=== PATIENT | female | born 1960 | race African-American/Black ===

== ENCOUNTER 2024-03-29 06:35 | Inpatient (IN) | payer MEDICARE, MEDICAID ==
[~2024-03-29] VITALS: Ht 160 cm; Wt 106.7 kg
[2024-03-29] MEDS: PREDNISONE 20MG TABLET PO STA (07:05)
[2024-03-29 07:43] LABS: BASOPHILS % 0.5 % (0.0-2.0); HEMATOCRIT. 47.7 % (36.0-48.0); HEMOGLOBIN. 15.5 g/dL (12.0-16.0); LYMPHOCYTES % 12.3 % (20.0-50.0); MEAN CORPUSCULAR HEMOGLOBIN 31.1 pg (28.0-32.0); MEAN CORPUSCULAR HGB CONC 32.5 g/dL (31.0-37.0); MEAN CORPUSCULAR VOLUME 95.7 fL (81.0-99.0); MONOCYTES % 8.6 % (2.0-8.0); NEUTROPHILS % 77.6 % (40.0-76.0); PLATELET 202 x1000/uL (130-400); RED BLOOD CELL COUNT 4.98 mill/uL (4.2-5.4); RED CELL DISTRIBUTION WIDTH 15.4 % (11.6-14.6); WHITE BLOOD COUNT 7.6 x1000/uL (4.5-11.0)
[2024-03-29] MEDS: ALBUTEROL (0.083%) 2.5MG/3ML NEB HHN STA (07:50)
[2024-03-29] MEDS: IPRATROPIUM BROMIDE (0.02%) 0.5MG/2.5ML NEB HHN STA (07:50)
[2024-03-29 08:00] VITALS: PULSE 78; RESP 20; O2SAT 99
[2024-03-29 08:02] LABS: CHLORIDE 109 mEq/L (98-107); POTASSIUM 4.5 mEq/L (3.5-5.1); SODIUM 142 mEq/L (136-145)
[2024-03-29 08:03] LABS: CALCIUM 9.9 mg/dL (8.7-10.4); CARBON DIOXIDE 24 mEq/L (21-32)
[2024-03-29 08:08] LABS: CREATININE 0.9 mg/dL (0.6-1.0); GLUCOSE 222 mg/dL (70-105); TROPONIN I HIGH SENSITIVITY 16 ng/L (3.0-34); UREA NITROGEN BLOOD 14 mg/dL (9-23)
[2024-03-29 10:28] LABS: TROPONIN I HIGH SENSITIVITY 16 ng/L (3.0-34)
[2024-03-29] MEDS ORDERED: MAGNESIUM/ALUMINUM HYDROXIDE/SIMETHICONE 30ML UDC PO PRN (11:30)
[2024-03-29] MEDS ORDERED: DOCUSATE SODIUM 100MG CAPSULE PO PRN (11:30)
[2024-03-29] MEDS ORDERED: DEXTROSE 50% WATER 50ML SYRINGE IV PRN (11:30)
[2024-03-29] MEDS ORDERED: ONDANSETRON HCL 4MG/2ML INJ IV PRN (11:30)
[2024-03-29] MEDS ORDERED: CLONIDINE 0.1MG TABLET PO PRN (11:30)
[2024-03-29] MEDS ORDERED: ACETAMINOPHEN 325MG TABLET PO PRN (11:30)
[2024-03-29] MEDS ORDERED: IPRATROPIUM/ALBUTEROL 0.5-3(2.5)MG/3ML NEB HHN PRN (11:40)
[2024-03-29 12:00] VITALS: BP_SYST 147; BP_SYST 148; BP_DIAS 85; BP_DIAS 95; PULSE 93; RESP 18; RESP 19; TEMP 36.28068; TEMP 36.78072; O2SAT 96
[2024-03-29] MEDS: PANTOPRAZOLE 40MG DR TABLET PO SCH (13:01)
[2024-03-29] MEDS: ENOXAPARIN 40MG/0.4ML SYR SUBCUT SCH (13:02)
[2024-03-29] MEDS: BLOOD SUGAR DIAGNOSTIC STRIP TEST SCH (13:02)
[2024-03-29] MEDS: INSULIN LISPRO 100 UNITS/ML SUBCUT SCH (13:03)
[2024-03-29 14:13] VITALS: BP 148/94; PULSE 80; RESP 18; TEMP 35.9732
[2024-03-29 15:34] VITALS: BP 125/80; PULSE 86; RESP 19; TEMP 36.61404; O2SAT 95
[2024-03-29] MEDS: SPIRONOLACTONE 25MG TABLET PO SCH (16:36)
[2024-03-29] MEDS: METHYLPREDNISOLONE SOD SUCC 40MG/ML (ACT-O-VIAL) IV SCH (16:36)
[2024-03-29] MEDS: ASPIRIN 81MG EC TABLET PO SCH (16:36)
[2024-03-29] MEDS ORDERED: NON FORMULARY MED PO SCH (17:00)
[2024-03-29 18:12] VITALS: PULSE 86; RESP 20; O2SAT 96
[2024-03-29] MEDS: IPRATROPIUM/ALBUTEROL 0.5-3(2.5)MG/3ML NEB HHN PRN (18:12)
[2024-03-29] MEDS ORDERED: AMIO100T4 MT (18:27)
[2024-03-29] MEDS ORDERED: HYDR50SO PO (18:27)
[2024-03-29] MEDS ORDERED: TIOT18CA3 INH (18:27)
[2024-03-29] MEDS ORDERED: FURO40TA5 MT (18:27)
[2024-03-29] MEDS ORDERED: INSU100I24 SQ (18:27)
[2024-03-29] MEDS ORDERED: CLAR10 PO (18:27)
[2024-03-29] MEDS ORDERED: MONT-46 MT (18:27)
[2024-03-29] MEDS ORDERED: BO1 TP (18:27)
[2024-03-29] MEDS ORDERED: TC1U15 TP (18:27)
[2024-03-29] MEDS ORDERED: NALT50TA5 MT (18:27)
[2024-03-29] MEDS ORDERED: GABA-290 MT (18:27)
[2024-03-29] MEDS ORDERED: ATOR40TA70 MT (18:27)
[2024-03-29] MEDS ORDERED: CARV25TA47 MT (18:27)
[2024-03-29] MEDS ORDERED: KETO-98 RIGHTEYE (18:27)
[2024-03-29] MEDS ORDERED: MAGN400T26 MT (18:27)
[2024-03-29] MEDS ORDERED: ALBU4TAB6 INH (18:27)
[2024-03-29] MEDS ORDERED: NITR0.4T49 SL (18:27)
[2024-03-29] MEDS ORDERED: SPIR50TA5 MT (18:27)
[2024-03-29] MEDS ORDERED: EMPA25TA MT (18:27)
[2024-03-29] MEDS ORDERED: METO2.5T2 PO (18:27)
[2024-03-29] MEDS ORDERED: CLOP-31 MT (18:27)
[2024-03-29 20:00] VITALS: BP 128/74; PULSE 86; RESP 19; TEMP 36.55848; O2SAT 95
[2024-03-29] MEDS: GUAIFENESIN 200MG/10ML SUGAR FREE UDC PO PRN (20:34)
[2024-03-29] MEDS: SACUBITRIL/VALSARTAN 49MG/51MG TABLET PO SCH (20:34)
[2024-03-29] MEDS: ATORVASTATIN CALCIUM 20MG TABLET PO SCH (20:34)
[2024-03-29] MEDS: ACETAMINOPHEN 325MG TABLET PO PRN (20:44)
[2024-03-30 04:00] VITALS: BP 129/78; PULSE 81; RESP 19; TEMP 36.44736; O2SAT 96
[2024-03-30 05:39] LABS: HEMOGLOBIN. 15.6 g/dL (12.0-16.0); MEAN CORPUSCULAR HEMOGLOBIN 30.6 pg (28.0-32.0); MEAN CORPUSCULAR HGB CONC 32.4 g/dL (31.0-37.0); MEAN CORPUSCULAR VOLUME 94.3 fL (81.0-99.0); MEAN PLATELET VOLUME 9.2 fl (7.4-10.4); PLATELET 222 x1000/uL (130-400); RED BLOOD CELL COUNT 5.09 mill/uL (4.2-5.4); RED CELL DISTRIBUTION WIDTH 15.5 % (11.6-14.6); WHITE BLOOD COUNT 8.8 x1000/uL (4.5-11.0)
[2024-03-30 05:45] LABS: CHLORIDE 106 mEq/L (98-107); SODIUM 139 mEq/L (136-145)
[2024-03-30 05:46] LABS: CARBON DIOXIDE 25 mEq/L (21-32)
[2024-03-30 05:51] LABS: GLUCOSE 327 mg/dL (70-105); TRIGLYCERIDE 103 mg/dL (0-150); UREA NITROGEN BLOOD 13 mg/dL (9-23)
[2024-03-30 05:52] LABS: LDL CHOLESTEROL 117 mg/dL (5-100)
[2024-03-30 05:53] LABS: CHOLESTEROL 197 mg/dL (<200); HDL CHOLESTEROL 63 mg/dL (>65)
[2024-03-30 06:34] LABS: DIFFERENTIAL COMMENT 1
[2024-03-30 08:00] VITALS: BP 119/77; PULSE 79; RESP 20; TEMP 37.05852; O2SAT 97
[2024-03-30] MEDS: FUROSEMIDE 40MG/4ML VIAL IVP SCH (09:20)
[2024-03-30] MEDS: MULTIVITAMINS,THER W-MINERALS TABLET PO SCH (09:20)
[2024-03-30] MEDS: INSULIN GLARGINE 100 UNITS/ML SUBCUT SCH ×3 (11:15→21:55)
[2024-03-30 12:00] VITALS: BP 120/79; PULSE 80; RESP 18; TEMP 36.61404; O2SAT 97
[2024-03-30 16:00] VITALS: BP 119/82; PULSE 76; RESP 20; TEMP 36.114; O2SAT 99
[2024-03-30 16:10] LABS: PLATELET ESTIMATE NORMAL
[2024-03-30] MEDS: INSULIN LISPRO 100 UNITS/ML SUBCUT SCH (17:53)
[2024-03-30 20:00] VITALS: BP 124/88; PULSE 88; RESP 20; TEMP 36.22512; O2SAT 98
[2024-03-31] VITALS (7 sets, daily range): BP systolic 118–132; BP diastolic 63–79; PULSE 77–96; RESP 16–20; TEMP 36.114–37.05852; O2SAT 96–99
[2024-03-31 06:27] LABS: CHLORIDE 105 mEq/L (98-107); POTASSIUM 4.2 mEq/L (3.5-5.1); SODIUM 139 mEq/L (136-145)
[2024-03-31 06:28] LABS: CARBON DIOXIDE 26 mEq/L (21-32)
[2024-03-31 06:29] LABS: CALCIUM 10.1 mg/dL (8.7-10.4)
[2024-03-31 06:33] LABS: CREATININE 0.8 mg/dL (0.6-1.0); GLUCOSE 193 mg/dL (70-105); UREA NITROGEN BLOOD 17 mg/dL (9-23)
[2024-03-31 07:42] LABS: HEMATOCRIT. 44.5 % (36.0-48.0); HEMOGLOBIN. 14.8 g/dL (12.0-16.0); MEAN CORPUSCULAR HEMOGLOBIN 31.2 pg (28.0-32.0); MEAN CORPUSCULAR HGB CONC 33.2 g/dL (31.0-37.0); MEAN CORPUSCULAR VOLUME 93.9 fL (81.0-99.0); MEAN PLATELET VOLUME 9.5 fl (7.4-10.4); PLATELET 230 x1000/uL (130-400); RED BLOOD CELL COUNT 4.74 mill/uL (4.2-5.4); RED CELL DISTRIBUTION WIDTH 15.6 % (11.6-14.6)
[2024-03-31 07:44] LABS: DIFFERENTIAL COMMENT 1
[2024-03-31] MEDS: FAMOTIDINE 20MG TABLET PO SCH (08:50)
[2024-03-31] MEDS ORDERED: BENZONATATE 100MG CAPSULE PO PRN (09:30)
[2024-03-31] MEDS ORDERED: GUAIFENESIN 600MG ER TABLET PO PRN (09:30)
[2024-03-31] MEDS: INSULIN GLARGINE 100 UNITS/ML SUBCUT SCH (11:48)
[2024-03-31] MEDS ORDERED: ALBU18HF2 IH (11:51)
[2024-03-31] MEDS ORDERED: P20 PO (11:51)
[2024-03-31 17:02] LABS: ATYPICAL LYMPHOCYTES 1
[2024-03-31 17:03] LABS: PLATELET ESTIMATE NORMAL
[2024-04-01] VITALS: BP 110/70; PULSE 78; RESP 20; TEMP 36.78072; O2SAT 97
[2024-04-01 04:00] VITALS: BP 113/76; PULSE 62; RESP 60; TEMP 36.33624; O2SAT 98
[2024-04-01 08:00] VITALS: BP 125/65; PULSE 65; RESP 18; TEMP 36.44736; O2SAT 99
== END 2024-04-01 09:52 | disposition home health service (06) | DRG 189 ==
LOC: ER 06:50 → 6EST 09:33 → EDBEDREQTM 09:39 → EDBEDREQ 09:39 → EDBEDREQSVC 09:39 → EDBEDREQ 09:40 → 6EST 19:28 → 7WST 22:35
PROVIDERS: ADMIT Hospitalist; ATTEND Hospitalist
DX: J96.01 Acute respiratory failure with hypoxia (principal); J44.1 Chronic obstructive pulmonary disease with (acute) exacerbation; J45.902 Unspecified asthma with status asthmaticus; I50.20 Unspecified systolic (congestive) heart failure; I42.0 Dilated cardiomyopathy; I11.0 Hypertensive heart disease with heart failure; E78.5 Hyperlipidemia, unspecified; D72.819 Decreased white blood cell count, unspecified; E11.65 Type 2 diabetes mellitus with hyperglycemia; K59.00 Constipation, unspecified; Z85.3 Personal history of malignant neoplasm of breast; Z87.891 Personal history of nicotine dependence; Z88.0 Allergy status to penicillin; Z95.810 Presence of automatic (implantable) cardiac defibrillator; Z79.4 Long term (current) use of insulin; Z91.018 Allergy to other foods
CPT/HCPCS: 36415; 71045; 80048; 80061; 82962; 83036; 83735; 83880; 84145; 84484; 85025; 93005; 93306; 93970; 94640; 97110; 97162; 97166; 99291; J1650; J1815; J1940; J2920; J7512

== ENCOUNTER 2024-10-13 21:14 | Emergency (ER) | payer MEDICARE, MEDICAID ==
[~2024-10-13] VITALS: Ht 157.5 cm; Wt 87.0 kg
[~2024-10-13 21:14] MED LIST: ALBU18HF2 IH; AMIO100T4 MT; ATOR40TA70 MT; BUDE10.32; CARV25TA47 MT; CLOP-31 MT; EMPA25TA MT; FAMO20TA8 PO; FURO-151 PO; INSU100C14; INSU100I24 SQ; INSU100I28 SQ; LORA5TAB8 MT; MAGN400T26 MT; METO2.5T2 MT; MONT-46 PO; NITR0.4T49 SL; SACU1TAB4 MT; SEMA0.258; SPIR50TA5 PO; TC1U15 TP
[2024-10-13 21:37] VITALS: TEMP 36.7; O2SAT 98
[2024-10-13 22:39] LABS: BASOPHILS % 0.7 % (0.0-2.0); EOSINOPHILS % 2.6 % (0.0-5.0); HEMATOCRIT. 46.2 % (36.0-48.0); HEMOGLOBIN. 15.1 g/dL (12.0-16.0); LYMPHOCYTES % 26.4 % (20.0-50.0); MEAN CORPUSCULAR HEMOGLOBIN 30.5 pg (28.0-32.0); MEAN CORPUSCULAR HGB CONC 32.7 g/dL (31.0-37.0); MEAN CORPUSCULAR VOLUME 93.3 fL (81.0-99.0); MONOCYTES % 10.6 % (2.0-8.0); NEUTROPHILS % 59.7 % (40.0-76.0); PLATELET 199 x1000/uL (130-400); RED BLOOD CELL COUNT 4.95 mill/uL (4.2-5.4); RED CELL DISTRIBUTION WIDTH 14.6 % (11.6-14.6)
[2024-10-13 22:49] LABS: CHLORIDE 103 mEq/L (98-107); POTASSIUM 4.4 mEq/L (3.5-5.1); SODIUM 139 mEq/L (136-145)
[2024-10-13 22:50] LABS: CARBON DIOXIDE 27 mEq/L (21-32)
[2024-10-13 22:51] LABS: CALCIUM 9.9 mg/dL (8.7-10.4)
[2024-10-13 22:56] LABS: CREATININE 1.5 mg/dL (0.6-1.0); GLUCOSE 174 mg/dL (70-105); TROPONIN I HIGH SENSITIVITY 12 ng/L (3.0-34); UREA NITROGEN BLOOD 23 mg/dL (9-23)
[2024-10-13 23:40] VITALS: BP 115/76; PULSE 76; RESP 16; O2SAT 96
== END 2024-10-14 | disposition home or self-care (01) ==
LOC: ER 21:14
DX: E11.65 Type 2 diabetes mellitus with hyperglycemia (principal); J44.9 Chronic obstructive pulmonary disease, unspecified; I50.9 Heart failure, unspecified; Z98.51 Tubal ligation status; Z90.89 Acquired absence of other organs; Z85.3 Personal history of malignant neoplasm of breast; Z79.899 Other long term (current) drug therapy; Z79.84 Long term (current) use of oral hypoglycemic drugs; Z79.4 Long term (current) use of insulin; Z79.02 Long term (current) use of antithrombotics/antiplatelets; Z88.0 Allergy status to penicillin
CPT/HCPCS: 36415; 80048; 82962; 84484; 85025; 93005; 99284

== ENCOUNTER 2024-11-23 00:29 | Emergency (ER) | payer MEDICARE, MEDICAID ==
[~2024-11-23] VITALS: Ht 162.6 cm; Wt 85.0 kg
[2024-11-23 00:44] VITALS: TEMP 36.4; O2SAT 96
[2024-11-23 02:43] LABS: CLARITY URINE CLEAR (CLEAR); COLOR URINE YELLOW (YELLOW); GLUCOSE URINE 3+ (NEGATIVE); KETONES URINE NEGATIVE (NEGATIVE); LEUKOCYTE ESTERASE URINE 1+ (NEGATIVE); NITRITE URINE NEGATIVE (NEGATIVE); OCCULT BLOOD URINE NEGATIVE (NEGATIVE); PH URINE 6.5 (4.5-8.0); PROTEIN URINE TRACE (NEGATIVE); SPECIFIC GRAVITY URINE 1.032 (1.005-1.030); UROBILINOGEN URINE 1.0 E.U./dL (0.2-1.0)
[2024-11-23 02:56] LABS: BASOPHILS % 0.4 % (0.0-2.0); EOSINOPHILS % 2.4 % (0.0-5.0); HEMATOCRIT. 46.5 % (36.0-48.0); HEMOGLOBIN. 15.3 g/dL (12.0-16.0); LYMPHOCYTES % 14.7 % (20.0-50.0); MEAN PLATELET VOLUME 9.4 fl (7.4-10.4); MONOCYTES % 7.5 % (2.0-8.0); NEUTROPHILS % 75.0 % (40.0-76.0); PLATELET 217 x1000/uL (130-400); RED BLOOD CELL COUNT 5.00 mill/uL (4.2-5.4); RED CELL DISTRIBUTION WIDTH 15.0 % (11.6-14.6)
[2024-11-23 03:08] LABS: CREATININE 1.2 mg/dL (0.6-1.0); TROPONIN I HIGH SENSITIVITY 10 ng/L (3.0-34); UREA NITROGEN BLOOD 17 mg/dL (9-23)
[2024-11-23] MEDS ORDERED: BENZ100C86 MT (03:58)
[2024-11-23] MEDS ORDERED: GUAI-453 MT (03:58)
[2024-11-23 04:08] VITALS: BP 132/88; PULSE 78; RESP 16; O2SAT 100
[2024-11-23 04:32] LABS: TROPONIN I HIGH SENSITIVITY 10 ng/L (3.0-34)
[2024-11-23 05:20] LABS: SQUAMOUS EPITHELIAL CELL URINE FEW /lpf (RARE/1+)
[2024-11-23 05:21] LABS: RBC URINE 0-2 /hpf (0-2)
[2024-11-23 05:22] LABS: BACTERIA URINE 3+
== END 2024-11-23 04:28 | disposition home or self-care (01) ==
LOC: ER 00:29
DX: R07.89 Other chest pain (principal); B34.9 Viral infection, unspecified; I11.0 Hypertensive heart disease with heart failure; I50.9 Heart failure, unspecified; E11.9 Type 2 diabetes mellitus without complications; Z88.0 Allergy status to penicillin; Z91.018 Allergy to other foods; Z79.4 Long term (current) use of insulin; Z79.899 Other long term (current) drug therapy; Z98.890 Other specified postprocedural states
CPT/HCPCS: 36415; 71045; 80048; 81003; 84484; 85025; 93005; 99285

== ENCOUNTER 2025-02-19 18:22 | Emergency (ER) | payer MEDICARE, MEDICAID ==
[~2025-02-19] VITALS: Ht 170.2 cm; Wt 100.0 kg
[~2025-02-19 18:22] MED LIST changes: +BENZ100C86 MT; +GUAI-453 MT
[2025-02-19 18:34] VITALS: TEMP 36.9; O2SAT 97
[2025-02-19] MEDS ORDERED: MORPHINE SULFATE 2 MG/ML INJ (NOT FOR IM USE) IV ONE (19:15)
[2025-02-19 19:20] LABS: CLARITY URINE CLEAR (CLEAR); COLOR URINE YELLOW (YELLOW); GLUCOSE URINE 3+ (NEGATIVE); KETONES URINE TRACE (NEGATIVE); LEUKOCYTE ESTERASE URINE TRACE (NEGATIVE); NITRITE URINE NEGATIVE (NEGATIVE); OCCULT BLOOD URINE NEGATIVE (NEGATIVE); PH URINE 6.0 (4.5-8.0); PROTEIN URINE TRACE (NEGATIVE); SPECIFIC GRAVITY URINE 1.041 (1.005-1.030); UROBILINOGEN URINE 1.0 E.U./dL (0.2-1.0)
[2025-02-19 19:46] LABS: HEMOGLOBIN. 14.4 g/dL (12.0-16.0); MEAN PLATELET VOLUME 9.5 fl (7.4-10.4)
[2025-02-19 19:50] LABS: BASOPHILS % 0.6 % (0.0-2.0); EOSINOPHILS % 3.4 % (0.0-5.0); HEMATOCRIT. 44.2 % (36.0-48.0); LYMPHOCYTES % 23.8 % (20.0-50.0); MONOCYTES % 9.5 % (2.0-8.0); NEUTROPHILS % 62.7 % (40.0-76.0); PLATELET 194 x1000/uL (130-400); RED BLOOD CELL COUNT 4.75 mill/uL (4.2-5.4); RED CELL DISTRIBUTION WIDTH 15.6 % (11.6-14.6)
[2025-02-19 19:55] LABS: BACTERIA URINE 2+; RBC URINE 0-2 /hpf (0-2); SQUAMOUS EPITHELIAL CELL URINE 1+ /lpf (RARE/1+)
[2025-02-19 19:59] LABS: CREATININE 1.1 mg/dL (0.6-1.0)
[2025-02-19 20:00] LABS: UREA NITROGEN BLOOD 15 mg/dL (9-23)
[2025-02-19 20:01] LABS: ASPARTATE AMINOTRANSFERASE 16 IU/L (<34); TROPONIN I HIGH SENSITIVITY 14 ng/L (3.0-34)
[2025-02-19] MEDS: FAMOTIDINE 20MG/2ML VIAL IV ONE (20:01)
[2025-02-19] MEDS: MAGNESIUM/ALUMINUM HYDROXIDE/SIMETHICONE 30ML UDC PO ONE (20:01)
[2025-02-19 20:02] LABS: BILIRUBIN DIRECT 0.1 mg/dL (<=3.0); BILIRUBIN TOTAL 0.5 mg/dL (0.1-1.0); PROTEIN TOTAL 6.4 g/dL (6.0-8.3)
[2025-02-19] MEDS: MORPHINE SULFATE 4 MG/ML INJ (FOR IV/IM USE) IV SCH (20:08)
[2025-02-19] MEDS ORDERED: FAMO40TA70 MT (21:41)
[2025-02-19] MEDS ORDERED: MAG355OR21 MT (21:41)
[2025-02-19] MEDS ORDERED: SUCR1TAB MT (21:41)
[2025-02-19 21:57] VITALS: BP 127/86; PULSE 74; RESP 16; O2SAT 97
== END 2025-02-19 21:58 | disposition home or self-care (01) ==
LOC: ER 18:22 → CMPBEDREQ 02-20 07:52
DX: K29.70 Gastritis, unspecified, without bleeding (principal); I11.0 Hypertensive heart disease with heart failure; I50.9 Heart failure, unspecified; J44.89 Other specified chronic obstructive pulmonary disease; E11.9 Type 2 diabetes mellitus without complications; Z79.4 Long term (current) use of insulin; Z79.84 Long term (current) use of oral hypoglycemic drugs; Z79.899 Other long term (current) drug therapy; Z88.0 Allergy status to penicillin
CPT/HCPCS: 99285; 74177; 96374; 96375; 80076; 80048; 81003; 83880; 83605; 83690; 85025; 84484; 36415; 93005; Q9967; J1308; J2270

== ENCOUNTER 2025-03-08 12:41 | Emergency (ER) | payer MEDICARE, MEDICAID ==
[~2025-03-08] VITALS: Ht 157.5 cm; Wt 87.0 kg
[~2025-03-08 12:41] MED LIST changes: +FAMO40TA70 MT; +MAG355OR21 MT; +SUCR1TAB MT
[2025-03-08 13:17] VITALS: O2SAT 100
[2025-03-08] MEDS: PREDNISONE 20MG TABLET PO ONE (15:30)
[2025-03-08 15:55] VITALS: PULSE 84; RESP 20
[2025-03-08] MEDS: ALBUTEROL (0.083%) 2.5MG/3ML NEB HHN SCH (15:55)
[2025-03-08 16:02] LABS: BASOPHILS % 0.6 % (0.0-2.0); EOSINOPHILS % 2.2 % (0.0-5.0); HEMATOCRIT. 44.3 % (36.0-48.0); HEMOGLOBIN. 14.4 g/dL (12.0-16.0); LYMPHOCYTES % 23.6 % (20.0-50.0); MEAN PLATELET VOLUME 9.3 fl (7.4-10.4); MONOCYTES % 9.0 % (2.0-8.0); NEUTROPHILS % 64.6 % (40.0-76.0); PLATELET 212 x1000/uL (130-400); RED BLOOD CELL COUNT 4.79 mill/uL (4.2-5.4); RED CELL DISTRIBUTION WIDTH 15.5 % (11.6-14.6)
[2025-03-08 16:15] LABS: CREATININE 0.9 mg/dL (0.6-1.0); UREA NITROGEN BLOOD 12 mg/dL (9-23)
[2025-03-08 16:16] LABS: TROPONIN I HIGH SENSITIVITY 15 ng/L (3.0-34)
[2025-03-08] MEDS ORDERED: BENZ100C86 MT (18:08)
[2025-03-08] MEDS ORDERED: P50 MT (18:08)
[2025-03-08] MEDS ORDERED: ALBU18HF2 IH (18:08)
[2025-03-08 18:16] VITALS: BP 130/84; PULSE 80; RESP 15; TEMP 36.7; O2SAT 100
== END 2025-03-08 18:17 | disposition home or self-care (01) ==
LOC: ER 12:41
DX: J45.901 Unspecified asthma with (acute) exacerbation (principal); E11.9 Type 2 diabetes mellitus without complications; I11.0 Hypertensive heart disease with heart failure; I44.7 Left bundle-branch block, unspecified; Z79.4 Long term (current) use of insulin; Z79.84 Long term (current) use of oral hypoglycemic drugs; Z79.899 Other long term (current) drug therapy; Z88.0 Allergy status to penicillin
CPT/HCPCS: 99285; 71045; 80048; 83880; 85025; 84484; 36415; 94640; 93005; J7512; 94070